=== PATIENT | female | born 1985 | race Caucasian/White ===

== ENCOUNTER 2017-10-08 18:34 | Emergency (ER) | payer BC ==
--- NOTE | 2017-10-08 20:31 | ED ---
HPI Chest Pain - HPI Summary HPI Summary: Patient is otherwise healthy 32-year-old female with a history of anxiety and no cardiac history presenting to the ED with left-sided chest pain which is radiating to the left arm with associated nausea and vomiting. She is experienced left-sided chest pain before with her anxiety attacks, but has never experienced associated radiated pain. Denies any fevers, sweats, chills. Symptoms are aggravated with sitting up and alleviated with lying flat. Assuming this was an anxiety attack, she took her normal dose of Ativan which did not alleviate her symptoms immediately and this worried her. On arrival to the ED, she feels much improved, but this has been 3 hours since she took her dose of Ativan. She states that usually works within 30 minutes or so. One episode of emesis which is also new for her. She states she has been under extreme amount of stress, specifically last night into today with family and work issues. Denies any smoking history. Family history includes father with pacemaker and heart attack at age 52. Denies any personal cardiac history. Other than her Ativan, she denies any other medication usage. She has not been sick recently and denies any URI symptoms including cough or congestion. - History of Current Complaint Chief Complaint: EDChestPainROMI Time Seen by Provider: 10/08/17 20:07 Hx Obtained From: Patient Onset/Duration: Started Hours Ago Timing: Constant Initial Severity: Moderate Current Severity: Moderate Pain Intensity: 4 Pain Scale Used: 0-10 Numeric Chest Pain Radiates: No Chest Pain Radiates To:: Shoulder, Arm Aggravating Factor(s): Nothing Alleviating Factor(s): Nothing Associated Signs and Symptoms: Positive: Chest Pain - Risk Factors Pulmonary Embolism Risk Factors: Negative TAD Risk Factors: Negative AMI/ACS Risk Factors: Family History - Allergy/Home Medications Allergies/Adverse Reactions: Allergies Allergy/AdvReac Type Severity Reaction Status Date / Time erythromycin base Allergy Abdominal Verified 10/08/17 18:49 Pain metoclopramide [From Reglan] Allergy Agitation Verified 10/08/17 18:49 Penicillins Allergy Anaphylatic Verified 10/08/17 18:49 Shock Home Medications: Home Medications Cetirizine* [ZyrTEC 10 MG TAB*] 10 mg PO DAILY 10/08/17 [History Confirmed 10/08] traZODone TAB* [Desyrel TAB*] 100 mg PO BEDTIME 10/08/17 [History Confirmed ] PMH/Surg Hx/FS Hx/Imm Hx Previously Healthy: Yes - Immunization History Hx Pertussis Vaccination: No Immunizations Up to Date: Unable to Obtain/Confirm Infectious Disease History: No Infectious Disease History: Denies: Traveled Outside the [place] in Last 30 Days - Social History Occupation: Employed Full-time Lives: With Family Alcohol Use: Weekly Alcohol Amount: 1-3 beers 5 nights per week. Hx Substance Use: No Substance Use Type: Reports: None Hx Tobacco Use: No Smoking Status (MU): Never Smoked Tobacco Review of Systems Constitutional: Negative Negative: Fever, Chills, Fatigue, Skin Diaphoresis Positive: Chest Pain Respiratory: Negative Gastrointestinal: Negative Positive: no symptoms reported, see HPI Musculoskeletal: Negative Neurological: Negative All Other Systems Reviewed And Are Negative: Yes Physical Exam Triage Information Reviewed: Yes Vital Signs On Initial Exam: Initial Vitals Temp Pulse Resp BP Pulse Ox 98.1 F 84 18 133/83 99 10/08/17 18:47 10/08/17 18:47 10/08/17 18:47 10/08/17 18:47 10/08/17 18:47 Vital Signs Reviewed: Yes Appearance: Positive: Well-Appearing, Well-Nourished Skin: Positive: Warm, Skin Color Reflects Adequate Perfusion Head/Face: Positive: Normal Head/Face Inspection Eyes: Positive: EOMI, PARKER, Conjunctiva Clear Neck: Positive: Supple, No Lymphadenopathy Respiratory/Lung Sounds: Positive: Clear to Auscultation, Breath Sounds Present Cardiovascular: Positive: Normal, RRR, Pulses are Symmetrical in both Upper and Lower Extremities Musculoskeletal: Positive: Normal, Strength/ROM Intact Neurological: Positive: Speech Normal Psychiatric: Positive: Normal, Affect/Mood Appropriate AVPU Assessment: Alert Diagnostics - Vital Signs Vital Signs Temp Pulse Resp BP Pulse Ox 10/08/17 18:47 98.1 F 84 18 133/83 99 - Laboratory Result Diagrams: 10/08/17 20:26 10/08/17 20:26 Lab Statement: Any lab studies that have been ordered have been reviewed, and results considered in the medical decision making process. Chest Pain Course/Dx - Course Course Of Treatment: During the course of treatment, the patient is evaluated for chest pain which is reproducible on physical exam. She denies any pain currently. Symptoms have resolved by the time she arrived to the ED. Vital signs are stable. BP 133/83. Afebrile. Chest x-ray obtained. Troponin 0.00. Other labs unremarkable. White blood count at 16.9. she endorses some nausea and diarrhea. She was unable to produce a diarrhea sample in the ED. Urine sample given. No vomiting since arrival, but continues to endorse nauseousness. She is given Zofran with relief. I've discussed this is most likely a gastroenteritis which is the reason for her elevated white count. However, on recheck she is febrile at 100.7. On arrival, she is 99.2. She has not taken any other medication other than her Ativan prior to arrival. UA shows no bacteria. Chlamydia and gonorrhea sent and we will call with any positive results. I've discussed all these findings with the patient and discussed this is most likely gastroenteritis, but I am unable to rule out other sources at this time without doing further imaging or blood cultures. Patient states she has been having abdominal pain which is intermittent since she had a cup or IUD placed 7 months ago, but has not had a UTI or other infection. She states she has a appointment with her [employer]ER to get the Copper IUD taken out, but she wants to assure that she does not have any UTI, for Chlamydia gonorrhea infection. She is given a prescription for Zofran and encouraged ibuprofen and Tylenol for fevers. She is to rest and follow-up with her PCP as soon as possible. She is also to follow-up with her [employer]ER. - Chest Pain Differential Diagnosis/HQI/PQRI: Chest Wall, Other: - Febrile - Diagnoses Provider Diagnoses: Chest wall pain, Fever, Anxiety Discharge - Sign-Out/Discharge Documenting (check all that apply): Discharge - Discharge Plan Condition: Stable Disposition: HOME Prescriptions: Ondansetron ODT TAB* [Zofran 4 MG Odt TAB*] 4 mg PO Q6H PRN #12 tab.odt MDD 4 PRN Reason: Nausea Patient Education Materials: Gastroenteritis (ED) Referrals: Caitlin Pruitt MD [Primary Care Provider] - Additional Instructions: Please follow up with PCP Follow up with OBGYN for further evaluation of the IUD. I will call with any abnormal results tomorrow Zofran as needed for nausea Continue your Ativan for any anxiety symptoms If he develop any worsening or changing symptoms, return to the ED immediately - Billing Disposition and Condition Condition: STABLE Disposition: HOME
[2017-10-08 20:38] LABS: ABS Basophils 0 10^3/ul (0-0.2); ABS Eosinophils 0.1 10^3/ul (0-0.6); ABS Lymphocytes 0.7 10^3/ul (1.0-4.8); ABS Monocytes 0.4 10^3/ul (0-0.8); ABS Neutrophils 15.7 10^3/ul (1.5-7.7); ABS Nucleated RBC 0 10^3/ul; Eosinophil % 0.8 % (0-6); Hematocrit 43 % (35-47); Hemoglobin 14.2 g/dl (12.0-16.0); Lymphocyte % 4.3 % (25-47); Mean Corpuscular HGB Conc 33 g/dl (31-36); Mean Corpuscular Hemoglobin 31 pg (27-31); Mean Corpuscular Volume 92 fL (80-97); Mean Platelet Volume 7.8 um3 (7.4-10.4); Nucleated Red Blood Cells % 0; Platelet Count 270 10^3/ul (150-450); Red Blood Count 4.65 10^6/ul (4.0-5.4); Red Cell Distribution Width 14 % (10.5-15); White Blood Count 16.9 10^3/ul (3.5-10.8)
[2017-10-08 21:17] LABS: EGFR Non-African American 79.1 (>60)
--- NOTE | 2017-10-08 21:45 | RAD ---
INDICATION: Chest pain in a patient with a history of anxiety COMPARISON: None TECHNIQUE: PA and lateral views of the chest were obtained. FINDINGS: The heart and mediastinum are normal in size and contour. The lungs are grossly clear. There is no evidence of large pleural effusion. Visualized bones are normal for the patient's age. There is no radiographic evidence of free air beneath the diaphragm IMPRESSION: No radiographic evidence of acute cardiopulmonary disease.
[2017-10-08] MEDS ORDERED: Acetaminophen TAB* 325 MG PO ONE (22:20)
[2017-10-08] MEDS ORDERED: Ondansetron ODT TAB* 4 MG SL ONE (22:20)
[2017-10-08 23:16] LABS: Urine Appearance Cloudy; Urine Blood Negative (Negative); Urine Color Yellow; Urine Ketones 2+ (Negative); Urine Protein Negative (Negative); Urine Specific Gravity 1.024 (1.010-1.030); Urine Urobilinogen Negative (Negative)
[2017-10-08] MEDS ORDERED: ALPRAZolam TAB* 0.5 MG PO ONE (23:21)
[2017-10-08] MEDS ORDERED: Ibuprofen TAB* 600 MG PO ONE (23:21)
[2017-10-08 23:36] VITALS: BP 104/61
== END 2017-10-08 23:36 | disposition home or self-care (01) ==
LOC: ED 18:34
DX: R07.9 Chest pain, unspecified (principal); M79.602 Pain in left arm; R50.9 Fever, unspecified; F41.9 Anxiety disorder, unspecified; Z88.1 Allergy status to other antibiotic agents; Z88.0 Allergy status to penicillin; Z88.8 Allergy status to other drugs, medicaments and biological substances; Z79.899 Other long term (current) drug therapy
CPT/HCPCS: 36415; 71046; 80053; 81003; 81015; 84484; 85025; 87086; 93005; 99283; A9270-GY